=== PATIENT | female | born 1970 | race Two or more races ===

== ENCOUNTER 2024-10-11 12:40 | Outpatient (CLI) | payer SELFPAY ==
--- NOTE | 2024-10-11 17:25 | RADIOLOGY REPORT ---
MRI CERVICAL SPINE CLINICAL HISTORY: CERVICALGIA Comparison: None Technique: Multi planar, multi sequence MR images of the cervical spine without intravenous contrast. FINDINGS: The cervical spinal cord demonstrates normal caliber and signal. The visualized posterior fossa nacho nts appear unremarkable. The craniocervical junction is within normal limits. The vertebral body heig hts and bone marrow signal are appropriate. There is straightening of the cervical lordosis. There is mild disc space narrowing at C5-C6. At C2-C3, C3-C4 and C4-C5 there is no significant disc herniation. There is no spinal canal or neurof oraminal stenosis. At C5-C6 there is disc bulge indenting the ventral thecal sac without canal or significant foraminal stenosis. At C6-C7 and C7-T1 there is no significant disc herniation. There is no spinal canal or neuroforamina l stenosis. IMPRESSION: 1. Mild degenerative disc changes at C5-C6 with disc bulge. There is no spinal canal or significant foraminal stenosis. HS:Y
== END 2024-10-11 23:59 | disposition home or self-care (01) ==
LOC: MRI02 12:40
PROVIDERS: ATTEND Pediatrics Sports Medicine
DX: M50.122 Cervical disc disorder at C5-C6 level with radiculopathy (principal); M47.812 Spondylosis without myelopathy or radiculopathy, cervical region; M25.512 Pain in left shoulder; M75.42 Impingement syndrome of left shoulder; M79.10 Myalgia, unspecified site
CPT/HCPCS: 72141